=== PATIENT | male | born 2000 | race African-American/Black ===

== ENCOUNTER → 2020-07-26 | Outpatient (CLI) | payer OTHER ==
[~2020-07-26] MED LIST: METHACHOLINE KIT (J7674) INH ONE
--- NOTE | 2020-07-26 11:23 | PFTRPT ---
Visit Date: 07/26/2020 Referring Doctor: Arlyn Haines Height: 68.00 Inches Weight: 145.00 Lbs BSA: 1.78 Diagnosis: R06.02 QUALITY: Study of excellent technical quality. PROCEDURE: Under protocol, methacholine was administered. At a dose of 10 mg or 63.75 CDUs, a 29% decline in the FEV1 was noted. PC of 4.25 is significant. Flow rates did return to baseline post-bronchodilator administration. IMPRESSION: Positive methacholine challenge study. MTDD
--- NOTE | 2020-07-31 11:27 | METHCHAL ---
METHACHOLINE CHALLENGE STUDY DATE; 07/26/2020 ORDERED BY: Arlyn Torres RN, ANP. QUALITY: Study of excellent technical quality. PROCEDURE: Under protocol, methacholine was administered. At a dose of 10 mg or 63.75 CDUs, a 29% decline in the FEV1 was noted. PC of 4.25 is significant. Flow rates did return to baseline post-bronchodilator administration. IMPRESSION: Positive methacholine challenge study. MTDD
== END ==
LOC: EDSEX 10:23 → M CARPUL 10:23
PROVIDERS: ATTEND Nurse Practitioner Adult Health
DX: R06.02 Shortness of breath (principal)
CPT/HCPCS: 94070; J7674

== ENCOUNTER → 2020-08-01 | Outpatient (CLI) | payer OTHER ==
--- NOTE | 2020-08-06 12:03 | REP ---
NONCONTRAST CHEST CT CLINICAL: Shortness of breath and cough. TECHNIQUE: Axial noncontrast images from the thoracic inlet to the upper abdomen with coronal and sagittal reformations. FINDINGS: Lung mtz are well-aerated and clear. No consolidation, significant nodule or mass lesion. No effusion or pneumothorax. Tracheobronchial tree is patent. No obvious adenopathy. Mediastinum demonstrates normal vasculature and heart/pericardium. Surrounding musculoskeletal structures are intact. IMPRESSION: Normal noncontrast chest CT. MTDD
== END ==
LOC: M RAD 15:06
PROVIDERS: ATTEND Nurse Practitioner Adult Health
DX: R06.02 Shortness of breath (principal); R05 Cough; R91.8 Other nonspecific abnormal finding of lung field